=== PATIENT | female | born 1985 | race Caucasian/White ===

== ENCOUNTER 2016-07-24 14:24 | Emergency (ER) | payer SELFPAY ==
[~2016-07-24] VITALS: Ht 160 cm; Wt 60.3 kg
[~2016-07-24 14:24] MED LIST: ALPR1TAB2 PO
[2016-07-24 14:29] VITALS: BP 170/112
[2016-07-24] MEDS ORDERED: DIPH,PERTUSS(ACELL),TET VAC/PF 0.5 ML IM-VACC ONE ×2 (15:00→15:09)
== END 2016-07-24 15:49 | disposition home or self-care (01) ==
LOC: ED 15:42
DX: S63.634A Sprain of interphalangeal joint of right ring finger, initial encounter (principal); Y04.1XXA Assault by human bite, initial encounter; Y93.89 Activity, other specified; Y92.410 Unspecified street and highway as the place of occurrence of the external cause; Y99.8 Other external cause status
CPT/HCPCS: 90471; 90715